=== PATIENT | male | born 1990 | race Caucasian/White ===

== ENCOUNTER 2019-01-30 20:35 | Emergency (ER) | payer MEDICAID ==
[~2019-01-30] VITALS: Ht 188 cm; Wt 77.1 kg
[2019-01-30 20:44] VITALS: BP 136/69
== END 2019-01-31 00:06 | disposition left against medical advice (07) ==
LOC: ER 20:35
DX: M25.511 Pain in right shoulder (principal); Z53.21 Procedure and treatment not carried out due to patient leaving prior to being seen by health care provider; V49.49XA Driver injured in collision with other motor vehicles in traffic accident, initial encounter; Y93.89 Activity, other specified; Y99.8 Other external cause status; Y92.89 Other specified places as the place of occurrence of the external cause
CPT/HCPCS: 73000; 73030; 73130

== ENCOUNTER 2023-02-01 01:06 | Emergency (ER) | payer MEDICAID ==
[~2023-02-01] VITALS: Ht 188 cm; Wt 89.5 kg
[2023-02-01] MEDS ORDERED: IBUP-1456 PO (03:06)
[2023-02-01] MEDS ORDERED: KETOROLAC TROMETH 60MG/2ML VIAL IM ONE (03:30)
[2023-02-01 04:52] VITALS: BP 122/87
== END 2023-02-01 04:11 | disposition home or self-care (01) ==
LOC: ER 01:06
DX: S63.502A Unspecified sprain of left wrist, initial encounter (principal); F12.10 Cannabis abuse, uncomplicated; V00.131A Fall from skateboard, initial encounter; Y93.51 Activity, roller skating (inline) and skateboarding; Y92.89 Other specified places as the place of occurrence of the external cause; Y99.8 Other external cause status
CPT/HCPCS: 29125; 73110; 96372; 99283; J1885